=== PATIENT | female | born 1940 | race African-American/Black ===

== ENCOUNTER 2019-08-27 10:06 | Emergency (ER) | payer MEDICARE, MEDICAID ==
[~2019-08-27] VITALS: Ht 165.1 cm; Wt 69.0 kg
[~2019-08-27 10:06] MED LIST: LEVO88TA2 PO; METF-414 PO
[2019-08-27 11:33] LABS: BASOPHILS % 0.4 % (0.0-2.0); EOSINOPHILS % 1.1 % (0.0-5.0); HEMATOCRIT. 45.3 % (36.0-48.0); HEMOGLOBIN. 15.1 g/dL (12.0-16.0); LYMPHOCYTES % 22.7 % (20.0-50.0); MEAN CORPUSCULAR HEMOGLOBIN 29.3 pg (28.0-32.0); MEAN CORPUSCULAR VOLUME 87.9 fL (81.0-99.0); MONOCYTES % 7.2 % (2.0-8.0); NEUTROPHILS % 68.6 % (40.0-76.0); PLATELET 244 x1000/uL (130-400); RED BLOOD CELL COUNT 5.15 mill/uL (4.2-5.4); RED CELL DISTRIBUTION WIDTH 14.3 % (11.6-14.6)
[2019-08-27 11:39] LABS: CHLORIDE 107 mEq/L (98-107)
[2019-08-27 13:04] VITALS: BP 141/75
== END 2019-08-27 13:19 | disposition home or self-care (01) ==
LOC: ER 10:28
DX: G40.909 Epilepsy, unspecified, not intractable, without status epilepticus (principal); R47.81 Slurred speech; I10 Essential (primary) hypertension; E11.9 Type 2 diabetes mellitus without complications
CPT/HCPCS: 36415; 71045; 80053; 83880; 84484; 85025; 93005; 99284